=== PATIENT | female | born 1960 | race Two or more races ===

== ENCOUNTER → 2016-11-11 | Outpatient (CLI) | payer OTHER ==
--- NOTE | ~2016-11-11 | MY11 ---
[facility] A Service [facility] RADIOLOGY TEXT RESULTS PATIENT: PHU DE LA TORRE LOCATION: [facility] : 58 UNIT #: [id number] AGE: [address]: Elise Portillo DO SEX: F ORDER DR: [id number] [address] [id number] MR#: [id number] Acc #: [id number] NAME: PHU DE LA TORRE : 1960 SEX: F STUDY DATE/TIME: 11/11/2016 8:56 UNIT: [facility] ROOM: STUDY DESCRIPTION: MY Mammogram Screening Dig Carlo Attending Physician: Elise Portillo M.D. Referring Physician: Elise Portillo M.D. Ordering Physician: Elise Portillo M.D. Primary Care Physician: Elise Portillo M.D. MEDICAL IMAGING REPORT This report is preliminary unless electronic signature is present. EXAM Digital screening mammogram 11/11/2016 [facility] HISTORY 56-year-old woman no risk elevation. Annual screening. COMPARISON: 08/23/2014 FINDINGS Digital imaging of each breast was completed utilizing screening protocol. Review includes FDA-approved CAD device. Breast parenchyma remains extremely dense with residual fibroglandular opacities and mild fibronodularity. Slight dominance projects in the upper outer quadrant right breast and is stable. Subareolar duct prominence is again noted in each breast. There is no interval occurring mass. There are no suspicious microcalcifications and no architectural deformity. IMPRESSION Benign mammogram. Annual screening recommended. Patients over the age of 40 are entered into a reminder system with target due date for the next mammogram. A result letter will also be sent to the patient. BIRADS: 2 - benign findings. Dictated by... Jesus Huggins M.D. [facility] A Service of [facility] RADIOLOGY TEXT RESULTS PATIENT: PHU DE LA TORRE LOCATION: [facility] : 58 UNIT #: [id number] AGE: [address]: Elise Portillo DO SEX: F ORDER DR: THIS IS AN ELECTRONICALLY VERIFIED REPORT Jesus Huggins M.D. at 11/11/2016 3:31 PM [place] TD: 11/11/2016 14:38 JOB #: [id number] MEDICAL IMAGING REPORT Page 1 of 1
== END | disposition home or self-care (01) ==
LOC: SMAM 09-23 10:30
DX: Z12.31 Encounter for screening mammogram for malignant neoplasm of breast (principal)
CPT/HCPCS: G0202